=== PATIENT | male | born 1965 | race African-American/Black ===

== ENCOUNTER 2024-08-13 11:12 | Emergency (ER) | payer OTHER ==
[~2024-08-13] VITALS: Ht 172.7 cm; Wt 68.0 kg
[2024-08-13 11:14] VITALS: BP 125/58; PULSE 70; RESP 18; TEMP 36.6; O2SAT 100
== END 2024-08-13 14:07 ==
LOC: ER 11:12
DX: M54.2 Cervicalgia (principal); M54.9 Dorsalgia, unspecified; V43.52XA Car driver injured in collision with other type car in traffic accident, initial encounter; Y93.89 Activity, other specified; Y92.89 Other specified places as the place of occurrence of the external cause; Y99.8 Other external cause status
CPT/HCPCS: 99283